=== PATIENT | female | born 1940 | race Caucasian/White ===

== ENCOUNTER 2017-08-15 14:01 | Emergency (ER) | payer MEDICARE ==
[~2017-08-15] VITALS: Ht 175.3 cm; Wt 74.0 kg
[2017-08-15 14:40] VITALS: BP 144/64; PULSE 89; RESP 16; TEMP 97.6; O2SAT 100
[2017-08-15] MEDS ORDERED: SODIUM CHLOR 0.9% 1000 ML INJ 1,000 ML IV SCH (16:48)
[2017-08-15] MEDS ORDERED: MORPHINE SULFATE 4 MG/ML INJ IV PUSH ONE (17:00)
[2017-08-15] MEDS ORDERED: ONDANSETRON ODT 4 MG TAB PO ONE (17:00)
[2017-08-15 17:22] LABS: AUTOMATED NEUTROPHIL # 3.6 TH/MM3 (1.8-7.7); BASOPHIL % 0.5 % (0.0-2.0); EOSINOPHIL # 0.1 TH/MM3 (0-0.4); EOSINOPHIL % 2.3 % (0.0-4.0); HEMATOCRIT 37.6 % (35.0-46.0); HEMOGLOBIN 12.6 GM/DL (11.6-15.3); LYMPHOCYTE # 1.5 TH/MM3 (1.0-4.8); MEAN CELL VOLUME 95.5 FL (80.0-100.0); MEAN CORPUSCULAR HEMOGLOBIN 31.9 PG (27.0-34.0); MEAN CORPUSCULAR HGB CONC 33.4 % (32.0-36.0); MONO % 6.6 % (0.0-8.0); MONOCYTE # 0.4 TH/MM3 (0-0.9); NEUT % 64.6 % (16.0-70.0); PLATELET COUNT 231 TH/MM3 (150-450); RED BLOOD COUNT 3.93 MIL/MM3 (4.00-5.30); RED CELL DISTRIBUTION WIDTH 13.8 % (11.6-17.2); WHITE BLOOD COUNT 5.6 TH/MM3 (4.0-11.0)
[2017-08-15 17:44] LABS: ALBUMIN 3.9 GM/DL (3.4-5.0); ALT (GPT) 24 U/L (10-53); AST (GOT) 40 U/L (15-37); BICARBONATE 21.7 MEQ/L (21.0-32.0); BLOOD UREA NITROGEN 21 MG/DL (7-18); CHLORIDE 107 MEQ/L (98-107); CREATININE 1.49 MG/DL (0.50-1.00); GLOMERULAR FILTRATION RATE 34 ML/MIN (>89); GLUCOSE,RANDOM 87 MG/DL (74-106); SODIUM (NA) 141 MEQ/L (136-145)
[2017-08-15 17:46] LABS: ALKALINE PHOSPHATASE 104 U/L (45-117); TOTAL BILIRUBIN ADULT 0.4 MG/DL (0.2-1.0); TOTAL PROTEIN 7.7 GM/DL (6.4-8.2)
[2017-08-15] MEDS ORDERED: POTASSIUM CHLORIDE 20 MEQ CONTROLLED RELEASE TAB PO ONE (18:00)
[2017-08-15] MEDS ORDERED: SODIUM CHLOR 0.9% 1000 ML INJ 1,000 ML IV ONE (18:00)
[2017-08-15] MEDS ORDERED: metroNIDAZOLE 500 MG INJ 100 ML IV ONE (18:00)
[2017-08-15] MEDS ORDERED: CIPROFLOXACIN 400 MG PREMIX 200 ML IV ONE (18:00)
--- NOTE | 2017-08-15 18:06 | PD ---
HPI Chief Complaint: GI Complaint Time Seen by Provider: 16:02 Travel History International Travel<30 days: No Contact w/Intl Traveler<30days: No Traveled to known affect area: No History of Present Illness HPI 77-year-old female that presents to the ED for evaluation of severe diarrhea. Per patient has had this for 4 days. Continues. Nothing seems to relieve it. She feels cramping pain when the stool comes in the stool is foul smelling. No blood in it. No recent contact with anybody sick. Denies any recent hospitalizations. No recent travel. No camping trips. Per patient she did had part of a [employer] when this started but she does not know if he was related as nobody else got sick from that. Denies any chest pain or shortness of breath. No fevers chills or sweats. No upper abdominal pain. No allergies to medication. Has not seen anybody for this. No recent antibiotic use. No blood in the stool. Per patient she is able to keep stuff down but it seems to run through her. PFSH Past Medical History Hx Anticoagulant Therapy: No Arthritis: Yes Anxiety: Yes High Cholesterol: Yes Tetanus Vaccination: > 5 Years Influenza Vaccination: Yes Past Surgical History Hysterectomy: Yes Social History Alcohol Use: Yes (occ) Tobacco Use: No Substance Use: No Allergies-Medications (Allergen,Severity, Reaction): Coded Allergies: No Known Drug Allergies (Verified Allergy, Unknown, 08/15/17) Reported Meds & Prescriptions Reported Meds & Active Scripts Active Zofran Odt (Ondansetron Odt) 4 Mg Tab 4 Mg SL Q6HR PRN Flagyl (Metronidazole) 500 Mg Tab 500 Mg PO BID 10 Days Review of Systems Except as stated in HPI: all other systems reviewed are Neg Physical Exam Narrative GENERAL: SKIN: Warm and dry. HEAD: Atraumatic. Normocephalic. EYES: Pupils equal and round. No scleral icterus. No injection or drainage. ENT: No nasal bleeding or discharge. Mucous membranes pink and moist. Tongue is midline. No uvula deviation. NECK: Trachea midline. No JVD. CARDIOVASCULAR: Regular rate and rhythm. No murmurs, S3, S4. RESPIRATORY: No accessory muscle use. Clear to auscultation. Breath sounds equal bilaterally. GASTROINTESTINAL: Abdomen soft, some are producible tenderness in the right lower and left lower quadrant, nondistended. Hepatic and splenic margins not palpable. MUSCULOSKELETAL: Extremities without clubbing, cyanosis, or edema. No obvious deformities. Full range of motion of the upper and lower extremities bilaterally. 2+ pulses bilaterally. NEUROLOGICAL: Awake and alert. No obvious cranial nerve deficits. Motor grossly within normal limits. Five out of 5 muscle strength in the arms and legs. Normal speech. PSYCHIATRIC: Appropriate mood and affect; insight and judgment normal. Data Data Last Documented VS Vital Signs Date Time Temp Pulse Resp B/P (MAP) Pulse Ox O2 Delivery O2 Flow Rate FiO2 08/15/17 18:22 70 18 133/72 (92) 100 Room Air 08/15/17 14:40 97.6 Orders Orders Complete Blood Count With Diff (08/15/17 14:43) Comprehensive Metabolic Panel (08/15/17 14:43) Lipase (08/15/17 14:43) C Diff Toxin Pcr (08/15/17 16:08) Stool Ova And Parasite Screen (08/15/17 16:08) Stool Afb Culture And Stain (08/15/17 16:08) Enteric Path (Stool) (08/15/17 16:08) Morphine Inj (Morphine Inj) (08/15/17 17:00) Sodium Chlor 0.9% 1000 Ml Inj (Ns 1000 M (08/15/17 16:48) Ondansetron Odt (Zofran Odt) (08/15/17 17:00) Stool Afb Culture And Stain (08/15/17 17:39) Potassium Chloride (Kcl) (08/15/17 18:00) Metronidazole 500 Mg Inj (Flagyl 500 Mg (08/15/17 18:00) Ciprofloxacin 400 Mg Premix (Cipro 400 M (08/15/17 18:00) Sodium Chlor 0.9% 1000 Ml Inj (Ns 1000 M (08/15/17 18:00) Ct Abd/Pel W/O Iv Contrast (08/15/17 ) Ed Discharge Order (08/15/17 20:41) Labs Laboratory Tests Test 08/15/17 16:40 08/15/17 16:58 Stool C. difficile Toxin (PCR) NEGATIVE Stl C. difficile Toxin Epiderm 027 PRESUMPTIVE NEGATIVE White Blood Count 5.6 TH/MM3 Red Blood Count 3.93 MIL/MM3 Hemoglobin 12.6 GM/DL Hematocrit 37.6 % Mean Corpuscular Volume 95.5 FL Mean Corpuscular Hemoglobin 31.9 PG Mean Corpuscular Hemoglobin Concent 33.4 % Red Cell Distribution Width 13.8 % Platelet Count 231 TH/MM3 Mean Platelet Volume 8.0 FL Neutrophils (%) (Auto) 64.6 % Lymphocytes (%) (Auto) 26.0 % Monocytes (%) (Auto) 6.6 % Eosinophils (%) (Auto) 2.3 % Basophils (%) (Auto) 0.5 % Neutrophils # (Auto) 3.6 TH/MM3 Lymphocytes # (Auto) 1.5 TH/MM3 Monocytes # (Auto) 0.4 TH/MM3 Eosinophils # (Auto) 0.1 TH/MM3 Basophils # (Auto) 0.0 TH/MM3 CBC Comment DIFF FINAL Differential Comment Blood Urea Nitrogen 21 MG/DL Creatinine 1.49 MG/DL Random Glucose 87 MG/DL Total Protein 7.7 GM/DL Albumin 3.9 GM/DL Calcium Level 9.0 MG/DL Alkaline Phosphatase 104 U/L Aspartate Amino Transf (AST/SGOT) 40 U/L Alanine Aminotransferase (ALT/SGPT) 24 U/L Total Bilirubin 0.4 MG/DL Sodium Level 141 MEQ/L Potassium Level 3.1 MEQ/L Chloride Level 107 MEQ/L Carbon Dioxide Level 21.7 MEQ/L Anion Gap 12 MEQ/L Estimat Glomerular Filtration Rate 34 ML/MIN Lipase 95 U/L MDM Medical Decision Making Medical Screen Exam Complete: Yes Emergency Medical Condition: Yes Medical Record Reviewed: Yes Interpretation(s) CBC & BMP Diagram 08/15/17 16:58 Total Protein 7.7, Albumin 3.9, Calcium Level 9.0, Alkaline Phosphatase 104, Aspartate Amino Transf (AST/SGOT) 40 H, Alanine Aminotransferase (ALT/SGPT) 24, Total Bilirubin 0.4 Last Impressions Abdomen/Pelvis CT 08/15/17 0000 Signed Impressions: CONCLUSION: Differential Diagnosis Diverticulitis versus C. difficile diarrhea versus bacterial infection versus colitis Narrative Course 77-year-old female that presents to the ED for evaluation of lower abdominal pain with diarrhea. Patient was properly examined and was found to have signs and symptoms consistent appears to be diarrhea versus diverticulitis. Concerning for infectious etiology. Patient was able to give us a sample of her stool. C. difficile and cultures were ordered. Patient will be started on IV antibiotics here. Labs and imaging showed hypokalemia and slight dehydration otherwise unremarkable. Some mesenteric inflammatory changes but no diverticulitis or other acute disease. Case discussed with my attending who agrees with plan. Patient will be discharged home with prescription for Flagyl and Zofran. Close follow-up with PCP. See ED worsening symptoms. At this time cultures for stool still pending. Patient was told that she will be contacted if the studies come positive. Diagnosis Primary Impression: Diarrhea Qualified Codes: A09 - Infectious gastroenteritis and colitis, unspecified Patient Instructions: General Instructions Additional Instructions: [place] diet. Drink lots of fluids. Take medication as prescribed. Follow-up with PCP. See ED if worsening symptoms. Med/Other Pt SpecificInfo: Prescription(s) given Scripts Ondansetron Odt (Zofran Odt) 4 Mg Tab 4 MG SL Q6HR Y for Nausea/Vomiting, #15 TAB 0 Refills Prov: Liane Meng DO 08/15/17 Metronidazole (Flagyl) 500 Mg Tab 500 MG PO BID for Infection for 10 Days, #20 TAB 0 Refills Prov: Liane Meng DO 08/15/17 Disposition: 01 DISCHARGE HOME Condition: Stable Jamel Harris August 15, 2017 18:06
[2017-08-15 18:22] VITALS: BP 133/72; PULSE 70; RESP 18; O2SAT 100
--- NOTE | 2017-08-15 20:26 | RADRPT ---
EXAM DATE: 08/15/2017 8:06 PM EDT AGE/SEX: 77 years / Female INDICATIONS: Abdominal pain. Diarrhea. CLINICAL DATA: This is the patient's initial encounter. Patient reports that signs and symptoms have been present for 3 days and indicates a pain score of 5/10. MEDICAL/SURGICAL HISTORY: None. Hysterectomy. RADIATION DOSE: 8.30 CTDI (mGy) COMPARISON: No prior [facility] exams available for comparison. TECHNIQUE: Multiple contiguous axial images were obtained through the abdomen. Images were obtained using multiple row detector helical technique. Using dose reduction techniques, radiation dose was ke pt as low as reasonably achievable to obtain optimal diagnostic quality images. Lower Lungs: The visualized lower lungs are clear. Liver: There is a round 1.3 cm low-density lesion in the posterior segment of the right lobe of the l iver, probably representing a cyst. The density of the remainder of the liver is homogeneous for nonc ontrast technique. There is no dilation of the biliary tree. Cholecystectomy. Spleen: Homogeneous density without enlargement. Pancreas: Unremarkable without mass or calcification. Kidneys: Normal in size and shape. No evidence of mass or hydronephrosis. Adrenal Glands: Unremarkable. Aorta: The aorta and proximal iliac vessels are grossly unremarkable without aneurysmal dilation. Bowel/Mesentery: No dilated loops of small or large bowel. There is some mild induration of the mese nteric fat in the left epigastric region and nonenlarged nodes. Abdominal Wall: Intact. Retroperitoneum: No evidence of adenopathy in the retrocrural, para-aortic, or deep pelvic regions. Bladder: Contours are smooth. Reproductive Organs: No abnormal masses or calcifications seen. Inguinal: The inguinal region is unremarkable without evidence of adenopathy. Bony Structures: Unremarkable. CONCLUSION: 1. Mild induration of the mesenteric fat left hypogastric region may represent an inflammatory proce ss. 2. Probable right hepatic cyst. 3. Otherwise negative noncontrast CT abdomen/pelvis. Electronically signed by: Jesus Villeda MD 08/15/2017 8:25 PM EDT
[2017-08-15] MEDS ORDERED: METR-1 PO (20:34)
[2017-08-15] MEDS ORDERED: ZOFR4TAB3 SL (20:34)
[2017-08-15] MEDS ORDERED: CIPR-9 PO (20:34)
--- NOTE | 2017-08-15 20:45 | PD ---
Physical Exam Narrative I, Dr. Meng, have reviewed the advance practice practitioner's documentation and am in agreement, met with the patient face to face, made the diagnosis, and the medical decision making was done by me. *My assessment and Findings: Viral gastroenteritis vs. colitis vs. c diff colitis vs. dehydration vs. electrolyte abnormality 77yo F with nonbloody foul smelling diarrhea for 4 days. Denies any fever, chest pain, sob, n/v. Had some abdominal cramping. Pt is well appearing and tolerating PO. Labs reviewed, no leukocytosis. H/H normal. BUN/creatinine mildly elevated at 21/1.49. Mild hypokalemia at 3.1. Replaced orally. Pt given NS IVF and zofran. CT a/p showed mild induration of the mesenteric fat left hypogastric region may represent an inflammatory process. Probable right hepatic cyst. Otherwise negative noncontrast CT abdomen/pelvis. Return precautions given. Data Data Last Documented VS Vital Signs Date Time Temp Pulse Resp B/P (MAP) Pulse Ox O2 Delivery O2 Flow Rate FiO2 08/15/17 20:43 08/15/17 18:22 70 18 100 Room Air 08/15/17 14:40 97.6 Orders Orders Complete Blood Count With Diff (08/15/17 14:43) Comprehensive Metabolic Panel (08/15/17 14:43) Lipase (08/15/17 14:43) C Diff Toxin Pcr (08/15/17 16:08) Stool Ova And Parasite Screen (08/15/17 16:08) Stool Afb Culture And Stain (08/15/17 16:08) Enteric Path (Stool) (08/15/17 16:08) Morphine Inj (Morphine Inj) (08/15/17 17:00) Sodium Chlor 0.9% 1000 Ml Inj (Ns 1000 M (08/15/17 16:48) Ondansetron Odt (Zofran Odt) (08/15/17 17:00) Stool Afb Culture And Stain (08/15/17 17:39) Potassium Chloride (Kcl) (08/15/17 18:00) Metronidazole 500 Mg Inj (Flagyl 500 Mg (08/15/17 18:00) Ciprofloxacin 400 Mg Premix (Cipro 400 M (08/15/17 18:00) Sodium Chlor 0.9% 1000 Ml Inj (Ns 1000 M (08/15/17 18:00) Ct Abd/Pel W/O Iv Contrast (08/15/17 ) Ed Discharge Order (08/15/17 20:41) Labs Laboratory Tests Test 08/15/17 16:40 08/15/17 16:58 Stool C. difficile Toxin (PCR) NEGATIVE Stl C. difficile Toxin Epiderm 027 PRESUMPTIVE NEGATIVE White Blood Count 5.6 TH/MM3 Red Blood Count 3.93 MIL/MM3 Hemoglobin 12.6 GM/DL Hematocrit 37.6 % Mean Corpuscular Volume 95.5 FL Mean Corpuscular Hemoglobin 31.9 PG Mean Corpuscular Hemoglobin Concent 33.4 % Red Cell Distribution Width 13.8 % Platelet Count 231 TH/MM3 Mean Platelet Volume 8.0 FL Neutrophils (%) (Auto) 64.6 % Lymphocytes (%) (Auto) 26.0 % Monocytes (%) (Auto) 6.6 % Eosinophils (%) (Auto) 2.3 % Basophils (%) (Auto) 0.5 % Neutrophils # (Auto) 3.6 TH/MM3 Lymphocytes # (Auto) 1.5 TH/MM3 Monocytes # (Auto) 0.4 TH/MM3 Eosinophils # (Auto) 0.1 TH/MM3 Basophils # (Auto) 0.0 TH/MM3 CBC Comment DIFF FINAL Differential Comment Blood Urea Nitrogen 21 MG/DL Creatinine 1.49 MG/DL Random Glucose 87 MG/DL Total Protein 7.7 GM/DL Albumin 3.9 GM/DL Calcium Level 9.0 MG/DL Alkaline Phosphatase 104 U/L Aspartate Amino Transf (AST/SGOT) 40 U/L Alanine Aminotransferase (ALT/SGPT) 24 U/L Total Bilirubin 0.4 MG/DL Sodium Level 141 MEQ/L Potassium Level 3.1 MEQ/L Chloride Level 107 MEQ/L Carbon Dioxide Level 21.7 MEQ/L Anion Gap 12 MEQ/L Estimat Glomerular Filtration Rate 34 ML/MIN Lipase 95 U/L [facility] Supervised Visit with ALAN: Yes Diagnosis Primary Impression: Diarrhea Qualified Codes: R19.7 - Diarrhea, unspecified Scripts Ondansetron Odt (Zofran Odt) 4 Mg Tab 4 MG SL Q6HR Y for Nausea/Vomiting, #15 TAB 0 Refills Prov: Liane Meng DO 08/15/17 Metronidazole (Flagyl) 500 Mg Tab 500 MG PO BID for Infection for 10 Days, #20 TAB 0 Refills Prov: Liane Meng DO 08/15/17 Liane Meng DO August 15, 2017 20:45
== END 2017-08-15 21:26 | disposition home or self-care (01) ==
LOC: NEPC 14:01
DX: A09 Infectious gastroenteritis and colitis, unspecified (principal); E87.6 Hypokalemia
CPT/HCPCS: 74176; 80053; 83690; 85025; 87015; 87328; 87329; 87493; 87506; 96365; 96366; 96368; 96375; 99284; J0744; J2270; J7030; 87116; 87206